=== PATIENT | male | born 1985 | race Caucasian/White ===

== ENCOUNTER 2017-10-08 10:05 | Emergency (ER) | payer SELFPAY ==
[2017-10-08 10:17] VITALS: BP 129/82; PULSE 61; TEMP 97.8; O2SAT 98
--- NOTE | 2017-10-08 10:34 | ED PDOC ---
Upper Extremity Pain/Injury History Per: Patient History/Exam Limitations: no limitations Onset/Duration Of Symptoms: Mins Quality: "Pain" Severity: Mild Additional Complaint(s): CC: cut my hand HPI: 31 YO Male with no sig PMHx in seen in [facility] ED for L hand laceration. Pt states that he was cutting a watermelon for his son this morning when he accidentally cut his L thumb. Incident happened about 20 mins ago. L hand dominant but comfortable using both hands. PMD: [facility] PMHx: denies Surghx: denies Allergies: NKDA Meds: none Immunization: unknown tetnus status <Jordyn Mike - Last Filed: 10/08/17 12:35> <Trae Barroso - Last Filed: 10/08/17 14:04> Time Seen by Provider: 10/08/17 10:27 Past Medical History Vital Signs: Last Vital Signs Temp 97.8 F 10/08/17 10:16 Pulse 61 10/08/17 10:16 Resp BP 129/82 10/08/17 10:16 Pulse Ox 98 10/08/17 10:16 - Medical History PMH: No Chronic Diseases - Surgical History Surgical History: No Surg Hx - Family History Family History: States: No Known Family Hx - Living Arrangements Living Arrangements: With Family - Social History Drugs: Denies <Sa Ceeima - Last Filed: 10/08/17 12:35> Vital Signs: Last Vital Signs Temp 97.8 F 10/08/17 10:16 Pulse 61 10/08/17 10:16 Resp BP 129/82 10/08/17 10:16 Pulse Ox 98 10/08/17 11:38 <Trae Barroso - Last Filed: 10/08/17 14:04> - Allergies Allergies/Adverse Reactions: Allergies Allergy/AdvReac Type Severity Reaction Status Date / Time No Known Allergies Allergy Verified 10/08/17 10:34 Review of Systems Cardiovascular: Negative for: Chest Pain, Palpitations Respiratory: Negative for: Cough, Shortness of Breath Gastrointestinal: Negative for: Nausea, Vomiting Musculoskeletal: Positive for: Hand Pain <Jordyn Mike - Last Filed: 10/08/17 12:35> Physical Exam - Physical Exam Appears: Positive for: No Acute Distress Head Exam: Positive for: ATRAUMATIC Skin: Positive for: Normal Color Eye Exam: Positive for: Normal appearance, EOMI Neck: Positive for: Normal Cardiovascular/Chest: Positive for: Regular Rate, Rhythm. Negative for: Murmur Respiratory: Positive for: Normal Breath Sounds. Negative for: Wheezing Gastrointestinal/Abdominal: Positive for: Normal Exam, Bowel Sounds, Soft. Negative for: Tenderness Extremity: Positive for: Normal ROM Neurologic/Psych: Positive for: Alert, Oriented Front/Back of Body: 1 - 2cm lac in the R thumb, clean, bleeding <Jordyn Mike - Last Filed: 10/08/17 12:35> - ECG O2 Sat by Pulse Oximetry: 98 - Progress ED Course And Treament: 31 YO male with 2.5cm lac. -1% lido to locally -tetnus IM 11:15--pt seen and lac repaired Area irrigated, local anesthetic applied, sutured close Tylenol for pain PRN Follow up in 1 week with PMD in [facility] for suture removal Pt agrees with plan <Jordyn Mike - Last Filed: 10/08/17 12:35> Procedures - Laceration/Wound Repair Left Finger Wound Length (cm): 2.5 Wound's Depth, Shape: linear Wound Explored: clean Irrigated w/ Saline (ccs): 250 Anesthesia: 1% Lidocaine Volume Anesthetic (ccs): 4 Wound Repaired With: Sutures Suture Size/Type: 4:0 Number of Sutures: 1 (uninterrupted) Layer Closure?: No Wound Complexity: Simple Sterile Dressing Applied?: Yes <Jordyn Mike - Last Filed: 10/08/17 12:35> Disposition - Patient ED Disposition Is Patient to be Admitted: No - Disposition Disposition: Routine/Home Disposition Time: 11:40 <Jordyn Mike - Last Filed: 10/08/17 12:35> <Trae Barroso - Last Filed: 10/08/17 14:04> - Clinical Impression Clinical Impression: Laceration of finger - Disposition Referrals: [facility] [Outside] FAMILY PROVIDER,NO [Primary Care Provider] - Condition: STABLE Additional Instructions: Take tylenol PO for pain Follow up with PMD in 1 week for suture removal ER precautions given Instructions: Laceration Repair With Stitches (DC), Common Finger Injuries Forms: [employer] Connect (E[place]ian) Print Language: CITIZEN OF [place] / [employer] OPERATOR / Resident Statement MD/DO has reviewed & agrees with the documentation as recorded. <Trae Barroso - Last Filed: 10/08/17 14:04>
[2017-10-08] MEDS ORDERED: Tdap Vaccine 0.5 ml Vial (10-64 yrs) IM ONE ×2 (10:47→11:39)
[2017-10-08] MEDS ORDERED: Lidocaine 1% Inj (20ml) IJ ONE (10:47)
== END 2017-10-08 11:30 | disposition home or self-care (01) ==
LOC: SUPCPDRO 10:05 → H.ER 10:05
DX: S61.012A Laceration without foreign body of left thumb without damage to nail, initial encounter (principal); W45.8XXA Other foreign body or object entering through skin, initial encounter; Z23 Encounter for immunization